=== PATIENT | female | born 1950 | race Caucasian/White ===

== ENCOUNTER 2020-03-01 13:07 | Outpatient (CLI) | payer MEDICARE, SELFPAY ==
--- NOTE | 2020-03-01 13:10 | ECG_ITS ---
Measurements Intervals [place] Rate: 72 P: 29 [place]: 172 QRS: 7 QRSD: 91 T: 26 QT: 379 QTc: 416 Interpretive Statements SINUS RHYTHM BASELINE ARTIFACT- I, III, AVL, AVF NORMAL ECG Electronically Signed On 03-01-2020 13:34:49 CDT by Pravin Weston D.O.
[2020-03-01 13:41] LABS: Blood Urea Nitrogen 31 mg/dL (7-17); Calcium 9.9 mg/dL (8.4-10.2); Carbon Dioxide 27 mmol/L (22-30); Chloride 102 mmol/L (98-107); Estimated Glomerular Filt Rate 41; Glucose 106 mg/dL (65-105); Potassium 4.5 mmol/L (3.4-5.0); Sodium 138 mmol/L (137-145)
== END 2020-03-01 13:08 | disposition home or self-care (01) ==
PROVIDERS: Anesthesiology; PCP Internal Medicine; Visit Provider Plastic Surgery
DX: I10 Essential (primary) hypertension (principal)
CPT/HCPCS: 36415; 80048; 93005

== ENCOUNTER 2020-03-04 00:17 | Outpatient (CLI) | payer MEDICARE, SELFPAY ==
[2020-03-04 17:13] LABS: SARS-CoV-2 RNA PCR Negative
== END 2020-03-04 00:18 | disposition home or self-care (01) ==
LOC: ANHCOVIDDT 00:17
PROVIDERS: PCP Internal Medicine; Visit Provider Plastic Surgery
DX: Z01.812 Encounter for preprocedural laboratory examination (principal); Z11.59 Encounter for screening for other viral diseases
CPT/HCPCS: 87635; C9803; U0003

== ENCOUNTER 2020-03-06 01:43 | Day surgery (SDC) | payer MEDICARE, SELFPAY ==
[2019-11-27 09:47] VITALS: BMI 34.9
[2020-02-29 09:25] VITALS: BMI 34.9
--- NOTE | 2020-03-05 10:30 | HP_ITS ---
DATE OF SERVICE: 03/06/2020 PREOPERATIVE DIAGNOSIS: Basal cell carcinoma by biopsy, upper nasal lobule. HISTORY: Dimple was seen in October for a small divot on her nose. This had started in June she believed. She noticed some swelling there. She has also noticed that the site never seems to heal. A punch biopsy of 3 mm diameter was taken in late October and the diagnosis of basal cell carcinoma was made and it is noted that the margins are involved with tumor. She is prepared for excision of this with frozen section control and reconstruction with possible direct closure, possible local tissue transfer or full-thickness skin graft. She is aware that there will be scarring, some distortion of the shape of her nose, possible numbness and she would like to proceed to do this under a MAC anesthetic. MEDICATIONS: Reveals that she takes 2 duloxetine 60 mg, lisinopril/hydrochlorothiazide 10/12.5, oxybutynin 10 mg extended release, biotin 10,000 mg, calcium 600 mg, vitamin D3 800 international units and rosuvastatin 40 mg. ALLERGIES: SHE LISTS NO TO MEDICATIONS, BUT PREFERS TO HAVE NO CAFFEINE. PAST SURGICAL HISTORY: Prior surgeries include tonsillectomy, D and C, wisdom teeth extraction, total hysterectomy, cholecystectomy, scoping of right knee and left knee, right total knee replacement in 2005, back surgery L4-L5 in 2006, rectal surgery and hernia repair in 2016, carpal tunnel release 2011. REVIEW OF SYSTEMS: Indicates she is a nonsmoker. She reports some gastric reflux. FAMILY HISTORY: Noncontributory. SOCIAL HISTORY: She lives in [place]. She is retired. She is to [place] and is a patient of Dr. Turcios. PHYSICAL EXAMINATION: GENERAL: She is an alert, cooperative, informative adult female, 5 feet 5 in stature, 210 pounds in weight. HEENT: Remarkable for the above biopsy site of the top of the lobule near the midline. There is no palpable adenopathy. CHEST: Clear to auscultation. HEART: Regular rate and rhythm by palpation. ABDOMEN: Soft, nontender. EXTREMITIES: Normal. ASSESSMENT: Basal cell carcinoma of the upper nasal lobe. PLAN: Excision with frozen section and reconstruction as indicated with possible local tissue transfer or full-thickness skin graft under MAC anesthetic. D I MT: Nohemi
[2020-03-06] VITALS (8 sets, daily range): BP systolic 110–136; BP diastolic 50–75; PULSE 57–93; RESP 10–20; TEMP 36.5–36.6; O2SAT 98–100
[2020-03-06] MEDS: LACTATED RINGERS 1,000 ML 30 ML IV CONT (06:35)
--- NOTE | 2020-03-06 06:44 | WPDANESEPPF ---
Anes - Initial Pre Proc Eval Procedure: Operation Date: 03/06/20 07:30 Proposed Procedures p Excision Basal Cell Carcinoma Upper Nasal Lobe with Frozen Section, Possible Local Tissue Transfer - Joshua Marsh MD Date/Time: 03/06/20 06:44 Surgeon: Joshua Marsh MD Pre Op Diagnosis: Basal Cell Carcinoma Patient Data Age: 69 Gender: F Height: 1.65 m Weight: 95 kg Allergies Allergy/AdvReac Type Severity Reaction Status Date / Time caffeine Allergy Unknown TRIGGERS Verified 03/06/20 06:23 MIGRAINES rosuvastatin Allergy Unknown Muscle Verified 03/06/20 06:23 Spasms AND CONFUSION Home Medications Medication Instructions Recorded Confirmed Type calcium carbonate-vitamin D3 1 cap PO DAILY 11/27/19 02/29/20 History [Calcium 600 with Vitamin D3] duloxetine 60 mg PO DAILY 11/27/19 02/29/20 History lisinopril-hydrochlorothiazide 1 tablet PO DAILY 11/27/19 02/29/20 History atorvastatin 40 mg PO QAM 02/29/20 02/29/20 History ECG: Date of Service: 03/01/20 Procedure(s): CA 12 lead EKG Accession Number(s): [id number] cc: ~ Measurements Intervals [place] Rate: 72 P: 29 [place]: 172 QRS: 7 QRSD: 91 T: 26 QT: 379 QTc: 416 Interpretive Statements SINUS RHYTHM BASELINE ARTIFACT- I, III, AVL, AVF NORMAL ECG Electronically Signed On 03-01-2020 13:34:49 CDT by Pravin Weston D.O. Dictated By: Pravin Westno DO 03/01/20 1341 Patient hx anesthesia problems: none Family hx anesthesia problems: none [facility] Past Medical History Medical History (Updated 03/06/20 @ 06:48 by Sammy Pimentel MD) Anxiety Arthritis Cancer BCCA NOSE Depression HTN (hypertension) Hypercholesterolemia Obesity Social History Social History Smoking status: Never smoker Alcohol intake: current Anes - Eval Final PreProcedure Day of Procedure 03/06/20 06:44 Patient weight: obese Heart: regular rate and rhythm Lungs: clear to auscultation and normal air movement Airway: Mallampati scale class II Neurological: alert and oriented Last oral intake: >/= 8 hours ASA classification: III Emergent: no Anesthetic plan: proceed Anesthesia type and monitoring: general GIVS and LMA Informed Consent: The patient's anesthetic plan and its attendant risks and benefits were discussed with the patient/family/POA. Questions were solicited and answers provided to the satisfaction of the patient/family/POA.
--- NOTE | 2020-03-06 07:13 | WPDHPUPDATE1 ---
History and Physical Update Update Date/Time: 03/06/20 07:13 History and Physical has been reviewed, including an updated exam of the patient. There are NO changes in the patient's condition. Risks, benefits, and alternatives have been discussed and questions answered. Patient agrees to proceed with procedure.
--- NOTE | 2020-03-06 07:26 | PM.OP ---
Procedure Note - Brief Procedure Note - Brief Date of procedure: 03/06/20 Pre-op diagnosis: Basal Cell Carcinoma Basal cell carcinoma of upper nasal lobule Post-op diagnosis: same Procedure performed: 1 cm excision of BCC of upper nasal lobule with FS and LTT 4.0 sq cm. Surgeon: Joshua Marsh MD Estimated blood loss (mL): 3 Drains: No Packing: No Pathology: yes Complications: No immediate complications Condition: stable Disposition: same day
[2020-03-06] MEDS: ceFAZolin SODIUM 1 GM VIAL 2 GM IV PUSH (07:51)
[2020-03-06] MEDS: LIDO 1%/EPINEPHRINE 1:100,000 20 ML VIAL INFILTRATE (07:56)
[2020-03-06] MEDS: BACITRACIN OINTMENT 15 GM TUBE 1 APPLIC TOPICAL (07:57)
--- NOTE | 2020-03-06 10:10 | SUR.PREOP ---
0730 FAMILY UPDATE PROVIDED
--- NOTE | 2020-03-06 12:08 | P.OP_ITS ---
Procedure Note - Detailed Date of procedure: 03/06/20 Pre-op diagnosis: Basal Cell Carcinoma Basal cell carcinoma of the upper nasal lobule. Post-op diagnosis: same Procedure performed: 1 cm excision of basal cell carcinoma of the upper nasal lobule with frozen section and local tissue transfer reconstruction 4 sq cm Description of procedure: The previously biopsied site on the upper lobule of the patient's nose was marked while she waited in the holding area. She was taken to the operating room and placed supine on the operating table. A time- out was held and confirmed. She was given general anesthesia with an LMA. The face and right neck were prepped and draped in usual fashion. The nasal lobule was carefully examined and the apparent periphery of the mass was marked with a dotted line. This area was infiltrated with 1% lidocaine with epinephrine. A small raised bump to 1 side was incised with a scalpel intending to add that to our biopsy. However fluid drained from just under that and we did not send a biopsy; it seemed to be a cyst. A single suture was placed there . At that 0.2 g of Ancef were administered IV. The full-thickness skin ellipse was incised and carefully taken off the muscle and fatty layers keeping our specimen fairly thin. The most superior aspect was marked with a suture and this tissue was sent for frozen section. The pathologist confirmed the diagnosis of basal cell carcinoma and noted that margins were free. The diameter of this defect was 1.1 cm. A bilobed flap was designed and further infiltrated. The 2 flaps were carefully elevated and rotated. Wound margins were undermined in all areas 3-5 mm. No significant distortion of the nasal vestibule resulted from the rotation of these flaps. Insetting and closure was done with buried 5 0 Vicryl and interrupted 6 0 nylon sutures. The wound was dressed with bacitracin ointment. The patient was transported to the recovery area. She will be discharged home with a prescription for tramadol 8. And cephalexin 500 mg t.i.d. 12. She will have instructions in wound care and follow-up Surgeon: Joshua Marsh MD
== END 2020-03-06 10:52 | disposition home or self-care (01) ==
PROVIDERS: PCP Internal Medicine; Visit Provider Plastic Surgery
PROC: (CPT 14060; principal; 2020-03-06 07:30)
DX: C44.311 Basal cell carcinoma of skin of nose (principal); I10 Essential (primary) hypertension; E78.00 Pure hypercholesterolemia, unspecified; F41.8 Other specified anxiety disorders; E66.9 Obesity, unspecified; Z68.34 Body mass index [BMI] 34.0-34.9, adult
CPT/HCPCS: 14060; 88305; 88331; A9270; J0690; J1100; J2405; J2704; J3010; J7120

== ENCOUNTER → 2020-08-15 16:00 | Outpatient (CLI) | payer MEDICARE, SELFPAY ==
--- NOTE | ~2020-08-15 | MM_ITS ---
EXAMINATION: MM screening norris BI w li HISTORY: Screening mammogram TECHNIQUE: Craniocaudal and mediolateral oblique 3-D tomosynthesis images were obtained and synthetic 2-D images were generated. CAD analysis was submitted and interpreted. COMPARISON: 1020 , 06/22/2018, 05/02/2017 bilateral digital screening mammogram examinations BREAST PARENCHYMAL COMPOSITION: There are scattered areas of fibroglandular density. FINDINGS: Stable bilateral small intramammary lymph nodes. There is no evidence of suspicious mass, calcification, or architectural distortion to suggest malignancy in either breast. There has been no suspicious interval change. IMPRESSION: 1. No mammographic evidence of malignancy. 2. Recommend routine screening mammography in one year. BI-RADS Category 2: Benign finding(s). Reviewed, dictated and finalized at location A. [employer]PERATOR
== END ==
PROVIDERS: PCP Internal Medicine; Visit Provider Internal Medicine
DX: Z12.31 Encounter for screening mammogram for malignant neoplasm of breast (principal)
CPT/HCPCS: 77063; 77067

== ENCOUNTER 2020-12-04 15:57 | Inpatient (IN) | payer MEDICARE, SELFPAY ==
[2020-12-04] VITALS (10 sets, daily range): BP systolic 82–113; BP diastolic 41–76; PULSE 56–105; RESP 16–25; TEMP 36.6–36.9; O2SAT 95–100; BMI 33.5
--- NOTE | ~2020-12-04 | CT_ITS ---
EXAMINATION: CT abdomen pelvis w con EXAM DATE: 12/04/2020 17:04 INDICATION: Right-sided abdominal pain for 3 days. Diarrhea. TECHNIQUE: Spiral CT of the abdomen and pelvis was performed following intravenous injection of 100 m L Omnipaque 350. Axial, coronal and sagittal images were reviewed. The dose-length product (DLP) fo r this examination was 962.85 mGy-cm. The exposure was tailored according to patient size (auto mA e xposure control), and iterative reconstruction (ASIR) was used as additional dose reduction technique . Comparison is made to prior examination from 03/09/2017. FINDINGS: The liver, spleen, adrenal glands and pancreas are unremarkable. There are cholecystectomy clips. Portal and splenic veins are patent. Kidneys enhance symmetrically. There is no hydronephr osis. The uterus is not identified and has likely been surgically resected. The bladder is unremar kable. There is no retroperitoneal or pelvic lymphadenopathy. There is mild scattered arterioscler otic disease. There is ascending and transverse colonic edema, appearance consistent with colitis. No pneumatosis o r evidence of vascular occlusion, indicates more likely infectious etiology than ischemic but check l actate. The appendix is normal. There is extensive descending and sigmoid colonic diverticulosis. There is n o adjacent inflammatory change to suggest diverticulitis. There is small to moderate-sized gastroesop hageal hiatal hernia. There is expected amount of colonic stool. No free intraperitoneal gas. Th e heart is normal in size. There are no pericardial or pleural effusions. The lung bases are unrema rkable. There are no osteoblastic or osteolytic lesions identified. Posterior fusion L4-5. IMPRESSION: 1. Ascending and transverse colonic colitis, probably infectious but check lactate. 2. Extensive colonic diverticulosis. Reviewed, dictated and finalized at location A. IMPRESSION: 1. Ascending and transverse colonic colitis, probably infectious but check lac mcqueen. 2. Extensive colonic diverticulosis.
--- NOTE | 2020-12-04 16:16 | ECG_ITS ---
Measurements Intervals [place] Rate: 87 P: 46 [place]: 163 QRS: 24 QRSD: 102 T: 37 QT: 379 QTc: 458 Interpretive Statements SINUS RHYTHM BASELINE ARTIFACT- II, III NORMAL ECG Electronically Signed On 12-04-2020 18:43:05 CDT by Pravin Weston D.O.
--- NOTE | 2020-12-04 16:22 | ED.NAVMDI ---
HPI - Nausea/Vomiting/Diarrhea General Chief complaint: Nausea/Vomiting/Diarrhea Stated complaint: abd pain Time Seen by Provider: 12/04/20 16:10 History of Present Illness HPI Narrative: Left flank pain for the past 3 days. Radiates into the LLQ. Associated with nausea and loose foul smelling dark stools. Exacerbated by movement. Triage BP was low. No fever, SOB, cough, CP. Related Data Home Medications Medication Instructions Recorded Confirmed calcium carbonate-vitamin D3 1 cap PO DAILY 11/27/19 03/06/20 [Calcium 600 with Vitamin D3] duloxetine 60 mg PO DAILY 11/27/19 03/06/20 lisinopril-hydrochlorothiazide 1 tablet PO DAILY 11/27/19 03/06/20 atorvastatin 40 mg PO QAM 02/29/20 03/06/20 Allergies Allergy/AdvReac Type Severity Reaction Status Date / Time caffeine Allergy Unknown TRIGGERS Verified 12/04/20 16:15 MIGRAINES rosuvastatin Allergy Unknown Muscle Verified 12/04/20 16:15 Spasms AND CONFUSION Review of Systems Review of Systems: All systems reviewed & are unremarkable except as noted in HPI and below Constitutional: Constitutional: Denies fever(s) and Reports weakness Eyes: Eyes: Reports no additional eye complaints ENT: Reports system reviewed and no additional complaints, except as documented Cardiovascular: Cardiovascular: Reports no additional cardiovascular complaints Respiratory: Respiratory: Reports no additional respiratory complaints Gastrointestinal: Gastrointestinal: Reports abdominal pain, Reports diarrhea, Reports nausea and Denies vomiting Genitourinary: Genitourinary: Reports no additional female genitourinary complaints [facility] Past Medical History Medical History Anxiety Arthritis Cancer BCCA NOSE Depression HTN (hypertension) Hypercholesterolemia Obesity Social History Social History Smoking status: Never smoker Alcohol intake: current Exam Const: General: no acute distress, alert and ill appearing Orientation/consciousness: patient oriented x3 HENMT: Mouth: Yes dry mucous membranes Neck: Neck: normal visual inspection Resp: Effort & Inspection: normal respiratory effort Auscultation: clear to auscultation bilaterally Cardio: Rate: regular rate Rhythm: regular rhythm GI: Inspection: non-distended GI Palp: Yes Soft to palpation, Yes Tenderness to palpation present (GI) (Bilateral lower abdomen), No Guarding due to palpation present (GI) and No Rebound tenderness present Skin: General skin exam: normal color Neuro: General: patient oriented x3, moves all extremities and CN's II-XI intact bilaterally Speech: normal speech Gait exam (Neuro): Normal gait present Extrem: General: normal to inspection and no edema Course Vital Signs Vital signs: Vital Signs Temperature 36.8 C 12/04/20 16:07 Pulse Rate 86 12/04/20 16:07 Respiratory Rate 16 12/04/20 16:07 Blood Pressure 86/62 L 12/04/20 16:07 Pulse Oximetry 97 12/04/20 16:07 Temperature 36.8 C 12/04/20 16:07 Pulse Rate 68 12/04/20 17:47 Respiratory Rate 16 12/04/20 17:47 Blood Pressure 91/41 L 12/04/20 17:47 Pulse Oximetry 100 12/04/20 17:47 MDM - Nausea/Vomiting/Diarrhea MDM Narrative Medical decision making narrative: CT consistent with infectious colitis. Normal lactic acid. BP imrpoving with fluids Differential Diagnosis Differential diagnosis: Likely gastroenteritis, clostridium difficile infection, dehydration and other (colitis, diverticulitis) Medical Records Attestation: I reviewed the patient's medical records. Lab Data Attestation: I reviewed the patient's lab results. Result diagrams: 12/04/20 16:23 12/04/20 16:23 Labs: Lab Results 12/04/20 12/04/20 12/04/20 Range/Units 16:23 16:23 18:06 WBC 13.8 H (4.5-10.0) K/mm3 RBC 4.27 (4.2-5.4) M/mm3 Hgb 12.8 (12.0-15.0) g/dL Hct
[2020-12-04 16:31] LABS: Basophils Absolute Auto 0.1 K/mm3 (0.0-0.1); Basophils Percent Auto 0.4 % (0.2-1.2); Eosinophils Absolute Auto 0.1 K/mm3 (0-0.3); Eosinophils Percent Auto 0.9 % (0-4.4); Hematocrit 38.1 % (37.0-47.0); Hemoglobin 12.8 g/dL (12.0-15.0); Immature Granulocyte Absolute 0.05 K/mm3 (0.00-0.031); Immature Granulocyte Percent A 0.4 % (0-0.5); Lymphocytes Absolute Auto 1.27 K/mm3 (0.9-3.2); Lymphocytes Percent Auto 9.2 % (18.3-44.2); Mean Corpuscular HGB Conc 33.6 g/dl (32-36); Mean Corpuscular Volume 89.2 fl (80-100); Mean Platelet Volume 10.3 fl (7.4-10.4); Monocytes Absolute Auto 0.8 K/mm3 (0.1-0.6); Monocytes Percent Auto 5.7 % (2.6-8.5); Neutrophils Absolute Auto 11.5 K/mm3 (1.3-6.7); Neutrophils Percent Auto 83.4 % (45.5-73.1); Platelet Count Result 243 k/mm3 (150-375); Red Blood Count 4.27 M/mm3 (4.2-5.4); Red Cell Distribution Width 12.7 % (11.5-14.5); White Blood Count 13.8 K/mm3 (4.5-10.0)
[2020-12-04 16:43] LABS: Alanine Aminotransferase 21 U/L (4-35); Albumin Level 4.1 g/dL (3.5-5.1); Alkaline Phosphatase 76 U/L (38-126); Anion Gap 11 mmol/L (8-16); Aspartate Amino Transferase 30 U/L (14-36); Bilirubin,Total 0.8 mg/dL (0.2-1.3); Blood Urea Nitrogen 19 mg/dL (7-17); Calcium 9.1 mg/dL (8.4-10.2); Carbon Dioxide 25 mmol/L (22-30); Chloride 100 mmol/L (98-107); Estimated CRCL calculation 43 ml/min; Estimated Glomerular Filt Rate 44; Glucose 137 mg/dL (65-105); Lipase 55 U/L (23-300); Potassium 3.4 mmol/L (3.4-5.0); Sodium 136 mmol/L (137-145)
--- NOTE | 2020-12-04 16:55 | PC.NURSE ---
Pt to CT scan via cart.
[2020-12-04] MEDS: SODIUM CHLORIDE 0.9% IV 1,000 ML 999 ML IV CONT ×2 (17:05→18:40)
[2020-12-04 18:17] LABS: Add Urine Microscopic? YES; Appearance Urine Cloudy (Clear); Bilirubin Urine Negative (Negative); Blood Urine Negative (Negative); Color Urine Yellow (Yellow); Glucose Urine UA Negative (Negative); Ketones Urine Negative (Negative); Leukocyte Esterase Ur 1+ LEU/UL (Negative); Mucus Urine Rare /lpf; Nitrate Urine Negative (Negative); Protein Urine Negative (Negative); RBC Urine 0-2 /hpf (0-2); Squamous Epithelial Cell Urine Many /hpf (Few); Urobilinogen Urine Negative mg/dL (<2.0); WBC Urine 0-3 /hpf
[2020-12-04 18:18] LABS: Specific Grav Ur 1.051 (1.001-1.035)
--- NOTE | 2020-12-04 19:58 | ADMGEN ---
This patient, Dimple Mares, was admitted to 2 Medical Room 260-. Patient/family oriented to hospital policies and general routines including ID bracelet, bed and alarms, visiting hours, pain management, procedures, bathroom and other care routines, personal items, smoking policy, room service/diet, and visiting hours. Information on how to activate the Rapid Response Team has been discussed. Patient/Family are encouraged to report perceived risks to care and to ask questions if they do not understand what they are told or what they should do.
[2020-12-04] MEDS: LACTATED RINGERS 1,000 ML 125 ML IV CONT (20:30)
--- NOTE | 2020-12-04 20:44 | PM.IMHP ---
H&P: HPI History of Present Illness Date/Time: 12/04/20 20:44 Chief Complaint: Lower abd pain since Wednesday Narrative: This is a pleasant 70-year-old diabetic female with known history of chronic hypertension, hyperlipidemia, and gout who presented to the hospital with a complaint of lower abdominal pain since this past Wednesday. The patient's discomfort started out initially as right flank pain and then became lower abdominal pain. She tried to eat some food on Wednesday but developed bloody diarrhea and worsening abdominal pain. She denies any significant nausea or vomiting. She also denies any fever, chills, chest pain, shortness of breath, palpitations, dysuria, or hematuria. The patient has never had any episode of colitis before although she does have family history of her brother having early colon cancer in his 40s and her mother had diverticulosis. The patient's last colonoscopy was less than 5 years ago and was normal according to her. CT abdomen pelvis revealed ascending and transverse colonic colitis. The patient was treated with IV fluids and IV antibiotics. On my encounter with her she currently has no significant pain and is doing well. She has no other complaints at this time. Review of Systems Review of Systems: All systems reviewed & are unremarkable except as noted in HPI and below PMFSH Past Medical History Medical History (Updated 12/04/20 @ 20:52 by Arun Palomino MD) Anxiety Arthritis Cancer BCCA NOSE Chronic renal failure, stage 3 (moderate) Depression Diabetes mellitus HTN (hypertension) Hypercholesterolemia Obesity Surgical History Surgical History (Updated 12/04/20 @ 20:49 by Arun Palomino MD) History of cholecystectomy History of total hysterectomy Family History Family History Sibling Colon cancer Father Colon cancer Diabetes mellitus Hyperlipemia Mother Lung cancer Diverticulitis Diabetes mellitus Hyperlipemia Social History Social History Smoking status: Never smoker Alcohol intake: never Substance use: never Spiritual care concerns: No Meds Home Medications and Allergies Home Medications Medication Instructions Recorded Confirmed Type duloxetine 60 mg PO DAILY 11/27/19 12/04/20 History lisinopril-hydrochlorothiazide 1 tablet PO DAILY 11/27/19 12/04/20 History atorvastatin 40 mg PO QAM 02/29/20 12/04/20 History allopurinol 100 mg PO DAILY 12/04/20 12/04/20 History calcitriol 0.25 mcg PO EVERY OTHER DAY 12/04/20 12/04/20 History ergocalciferol (vitamin D2) 1,250 mcg PO WEEKLY 12/04/20 12/04/20 History metformin 500 mg PO DAILY 12/04/20 12/04/20 History oxybutynin chloride 5 mg PO HS 12/04/20 12/04/20 History Allergies Allergy/AdvReac Type Severity Reaction Status Date / Time caffeine Allergy Unknown TRIGGERS Verified 12/04/20 20:43 MIGRAINES rosuvastatin Allergy Unknown Muscle Verified 12/04/20 20:43 Spasms AND CONFUSION Vital Signs Vital Signs - 24 hr 12/04/20 16:07 12/04/20 16:18 12/04/20 16:50 Temperature 36.8 C Pulse Rate 86 90 86 Respiratory Rate 16 25 H Blood Pressure 86/62 L 113/58 L 89/63 L Pulse Oximetry 97 95 12/04/20 16:52 12/04/20 17:07 12/04/20 17:47 Temperature Pulse Rate 97 78 68 Respiratory Rate 18 16 Blood Pressure 82/61 L 91/49 L 91/41 L Pulse Oximetry 98 100 12/04/20 19:40 12/04/20 19:53 12/04/20 20:34 Temperature 36.6 C Pulse Rate 105 H 65 65 Respiratory Rate 18 16 Blood Pressure 99/76 L 101/51 L Pulse Oximetry 96 100 Exam Const: General: cooperative, alert and awake Nutritional Appearance: obese Orientation/consciousness: patient oriented x3 HENMT: Head: normal to inspection General nose exam: Normal external nose present Face and sinus: normal facial exam Mouth: Yes Normal oral and palatal mucosa present and Yes oropharynx normal Eyes: Pupils
[2020-12-05] VITALS (9 sets, daily range): BP systolic 111–118; BP diastolic 49–68; PULSE 54–63; RESP 16–20; TEMP 36.2–36.6; O2SAT 98–99
[2020-12-05 00:18] LABS: Glucose Point of Care 99 (65-105)
[2020-12-05] MEDS: LACTATED RINGERS 1,000 ML 125 ML IV CONT (05:02)
[2020-12-05 05:55] LABS: Basophils Percent Auto 0.6 % (0.2-1.2); Eosinophils Absolute Auto 0.2 K/mm3 (0-0.3); Eosinophils Percent Auto 2.9 % (0-4.4); Hematocrit 31.9 % (37.0-47.0); Hemoglobin 10.8 g/dL (12.0-15.0); Immature Granulocyte Absolute 0.01 K/mm3 (0.00-0.031); Immature Granulocyte Percent A 0.1 % (0-0.5); Lymphocytes Absolute Auto 1.52 K/mm3 (0.9-3.2); Lymphocytes Percent Auto 21.3 % (18.3-44.2); Mean Corpuscular HGB Conc 33.9 g/dl (32-36); Mean Corpuscular Hemoglobin 30.3 pg (26-34); Mean Corpuscular Volume 89.6 fl (80-100); Mean Platelet Volume 10.7 fl (7.4-10.4); Monocytes Absolute Auto 0.6 K/mm3 (0.1-0.6); Neutrophils Absolute Auto 4.8 K/mm3 (1.3-6.7); Neutrophils Percent Auto 67.1 % (45.5-73.1); Platelet Count Result 201 k/mm3 (150-375); Red Blood Count 3.56 M/mm3 (4.2-5.4); Red Cell Distribution Width 12.6 % (11.5-14.5); White Blood Count 7.1 K/mm3 (4.5-10.0)
[2020-12-05 06:06] LABS: Anion Gap 4 mmol/L (8-16); Blood Urea Nitrogen 15 mg/dL (7-17); Calcium 8.5 mg/dL (8.4-10.2); Carbon Dioxide 27 mmol/L (22-30); Chloride 106 mmol/L (98-107); Estimated CRCL calculation 52 ml/min; Estimated Glomerular Filt Rate 55; Glucose 97 mg/dL (65-105); Potassium 4.1 mmol/L (3.4-5.0); Sodium 137 mmol/L (137-145)
[2020-12-05 06:38] LABS: Glucose Point of Care 107 (65-105)
[2020-12-05 08:41] LABS: Hemoglobin A1C 5.6 % (<5.7)
[2020-12-05] MEDS: ENOXAPARIN 40 MG/0.4 ML SYRINGE SUB-Q (09:00)
--- NOTE | 2020-12-05 10:41 | PM.IMPN ---
Progress Note: A&P Assessment and Plan (1) Colitis: Code(s): K52.9 - Noninfective gastroenteritis and colitis, unspecified Status: Acute Assessment and Plan: Unclear etiology. Possibly infectious vs other unlikely etiologies such as ischemic vs IBD. Feeling somewhat better today. Patient willing to advance diet tonight. Used to follow Dr. Dickerson in the past; last colonoscpy was anywhere from [id number] but she is unsure exactly when Continue IV zosyn for now Will trial CLD tonight; NPO if not tolerating diet Pain control with IV narcotics; will need to wean as pain subsides Obtain stool studies Stool culture to be obtained BCx unfortunately not obtained prior to IV antibiotics admin, but will obtain for completeness sake Monitor for improvement She will need follow up with GI as outpatient; consider consultation if no improvement (2) Dehydration: Code(s): E86.0 - Dehydration Status: Acute Assessment and Plan: Decrease rate of IV fluids to 75 mL/hr monitor urine output and vital signs. (3) Leukocytosis: Qualifiers: Leukocytosis type: unspecified Qualified Code(s): D72.829 - Elevated white blood cell count, unspecified Code(s): D72.829 - Elevated white blood cell count, unspecified Status: Acute Assessment and Plan: Likely secondary to colitis. Resolved Monitor CBCD (4) Diabetes mellitus: Qualifiers: Diabetes mellitus type: type 2 Diabetes mellitus intermediate card tender insulin use: without group home use Diabetes mellitus complication status: without complication Qualified Code(s): E11.9 - Type 2 diabetes mellitus without complications Code(s): E11.9 - Type 2 diabetes mellitus without complications Status: Chronic Assessment and Plan: A1c 5.6 Accu-Cheks, sliding scale insulin coverage, hypoglycemia protocol. Diabetic diet when tolering diet Hold metformin (5) Chronic renal failure, stage 3 (moderate): Qualifiers: Chronic kidney disease stage 3 subtype: unspecified whether 3a or 3b Qualified Code(s): N18.30 - Chronic kidney disease, stage 3 unspecified Code(s): N18.30 - Chronic kidney disease, stage 3 unspecified Status: Chronic Assessment and Plan: Cr 1.00 today; improved from yesterday Monitor renal function, avoid nephrotoxic agents, renally dose medications. (6) HTN (hypertension): Qualifiers: Hypertension type: unspecified Qualified Code(s): I10 - Essential (primary) hypertension Code(s): I10 - Essential (primary) hypertension Status: Chronic Assessment and Plan: Patient's blood pressure has been soft since arrival but improved to 110s sys this mornning Monitor blood pressure. Hold home antihypertensives. Resume when appropriate. Subjective Date/time seen: 12/05/20 10:41 Interval history: Patient is a 70-year-old diabetic female with known history of chronic hypertension, hyperlipidemia, and gout who is seen in follow up for colitis with unclear etiology. Patient states she feels somewhat better today. Pain is less, mostly in lower abdomen, primarily right side. She has no n/v, f/c today. Her BM is loose, but not very many BMs since admission. No blood associated with BMs as far as she is aware. BMs are foul smelling and somewhat dark most recently. 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 Recenly had COVID vaccine a couple weeks ago as well. No other complaints or updated information. We discussed advancing diet this evening which she is agreeable to and understands to let nursing know if she has recurring symptoms. Denies cp/palpitations, sob/cough, dysuria, calf pain/swelling. Review of Systems Review of Systems:
[2020-12-05 11:41] LABS: Glucose Point of Care 94 (65-105)
[2020-12-05] MEDS: LACTATED RINGERS 1,000 ML 75 ML IV CONT (15:55)
[2020-12-05 17:53] LABS: Glucose Point of Care 75 (65-105)
[2020-12-06 00:15] LABS: Glucose Point of Care 85 (65-105)
[2020-12-06] MEDS: LACTATED RINGERS 1,000 ML 75 ML IV CONT (05:45)
[2020-12-06 05:49] LABS: Basophils Percent Auto 0.5 % (0.2-1.2); Eosinophils Absolute Auto 0.3 K/mm3 (0-0.3); Eosinophils Percent Auto 4.2 % (0-4.4); Hematocrit 31.4 % (37.0-47.0); Hemoglobin 10.5 g/dL (12.0-15.0); Immature Granulocyte Absolute 0.02 K/mm3 (0.00-0.031); Immature Granulocyte Percent A 0.3 % (0-0.5); Lymphocytes Absolute Auto 1.53 K/mm3 (0.9-3.2); Lymphocytes Percent Auto 25.4 % (18.3-44.2); Mean Corpuscular HGB Conc 33.4 g/dl (32-36); Mean Corpuscular Hemoglobin 29.4 pg (26-34); Mean Platelet Volume 9.8 fl (7.4-10.4); Monocytes Absolute Auto 0.5 K/mm3 (0.1-0.6); Monocytes Percent Auto 8.6 % (2.6-8.5); Neutrophils Absolute Auto 3.7 K/mm3 (1.3-6.7); Platelet Count Result 223 k/mm3 (150-375); Red Blood Count 3.57 M/mm3 (4.2-5.4); Red Cell Distribution Width 12.4 % (11.5-14.5)
[2020-12-06 05:51] LABS: Glucose Point of Care 87 (65-105)
[2020-12-06 06:00] VITALS: BP 111/47; PULSE 62; RESP 20; TEMP 36.5; O2SAT 98
[2020-12-06 06:06] LABS: Anion Gap 4 mmol/L (8-16); Blood Urea Nitrogen 8 mg/dL (7-17); Calcium 8.9 mg/dL (8.4-10.2); Carbon Dioxide 30 mmol/L (22-30); Chloride 107 mmol/L (98-107); Estimated CRCL calculation 52 ml/min; Estimated Glomerular Filt Rate 55; Glucose 98 mg/dL (65-105); Magnesium 1.9 mg/dL (1.6-2.3); Potassium 4.1 mmol/L (3.4-5.0); Sodium 141 mmol/L (137-145)
[2020-12-06 07:41] LABS: Iron 28 ug/dL (37-170)
[2020-12-06 07:51] LABS: Percent Iron Saturation 11 % (20-50)
[2020-12-06 08:30] VITALS: BP 123/58; PULSE 59; RESP 16; TEMP 36.2; O2SAT 98
[2020-12-06 08:50] LABS: Folic Acid 16.4 ng/mL (2.76->20)
[2020-12-06] MEDS: ENOXAPARIN 40 MG/0.4 ML SYRINGE SUB-Q (08:52)
[2020-12-06 11:46] VITALS: BP 133/58; PULSE 79; RESP 16; TEMP 36.5; O2SAT 100
[2020-12-06 12:16] LABS: Glucose Point of Care 132 (65-105)
--- NOTE | 2020-12-06 13:26 | PM.IMPN ---
Progress Note: A&P Assessment and Plan (1) Colitis: Code(s): K52.9 - Noninfective gastroenteritis and colitis, unspecified Status: Acute Assessment and Plan: Unclear etiology. Possibly infectious vs other unlikely etiologies such as ischemic vs IBD. Feeling better today, but slow progress. Patient willing to advance diet again tonight to FLD. She has followed Dr. Dickerson in the past; last colonoscopy was anywhere from [id number] but she is unsure exactly when. Stool studies pending. BCx negative to date x 2 (obtained after initiation of antibiotics) Continue IV zosyn for now Will advance FLD tonight Pain control with PO narcotics; will need to wean as pain subsides Monitor for improvement She will need follow up with GI as outpatient; consider consultation if no improvement (2) Dehydration: Code(s): E86.0 - Dehydration Status: Acute Assessment and Plan: D/c IV fluids today monitor urine output and vital signs. (3) Leukocytosis: Qualifiers: Leukocytosis type: unspecified Qualified Code(s): D72.829 - Elevated white blood cell count, unspecified Code(s): D72.829 - Elevated white blood cell count, unspecified Status: Resolved Assessment and Plan: Likely secondary to colitis. Resolved Monitor CBCD (4) Diabetes mellitus: Qualifiers: Diabetes mellitus type: type 2 Diabetes mellitus mcfp insulin use: without mcfp use Diabetes mellitus complication status: without complication Qualified Code(s): E11.9 - Type 2 diabetes mellitus without complications Code(s): E11.9 - Type 2 diabetes mellitus without complications Status: Chronic Assessment and Plan: A1c 5.6 d/c Accu-Cheks. Continue sliding scale insulin coverage, hypoglycemia protocol. Diabetic/low fiber diet when advanced Hold metformin (5) Chronic renal failure, stage 3 (moderate): Qualifiers: Chronic kidney disease stage 3 subtype: unspecified whether 3a or 3b Qualified Code(s): N18.30 - Chronic kidney disease, stage 3 unspecified Code(s): N18.30 - Chronic kidney disease, stage 3 unspecified Status: Chronic Assessment and Plan: Cr 1.00 today; improved from yesterday Monitor renal function, avoid nephrotoxic agents, renally dose medications. (6) HTN (hypertension): Qualifiers: Hypertension type: unspecified Qualified Code(s): I10 - Essential (primary) hypertension Code(s): I10 - Essential (primary) hypertension Status: Chronic Assessment and Plan: Patient's blood pressure soft on arrival but improved to 130s sys this morning Monitor blood pressure. Hold home antihypertensives. Resume when appropriate. Subjective Date/time seen: 12/06/20 13:26 Interval history: Patient is a 70-year-old diabetic female with known history of chronic hypertension, hyperlipidemia, and gout who is seen in follow up for colitis, likely infectious. Patient states she feels somewhat better today but was in a bit of pain last night. Pain is less today. She has no n/v, f/c today. Her BM is loose; 2 BMs since yesterday. No blood associated with BMs. No other complaints or updated information. We discussed advancing diet this evening which she is agreeable to and understands to let nursing know if she has recurring symptoms. Denies cp/palpitations, sob/cough, dysuria, calf pain/swelling. Review of Systems Review of Systems: All systems reviewed & are unremarkable except as noted in HPI and below Exam Narrative: Exam Narrative: General: Patient resting semi-recumbent in no acute distress. HEENT: Normocephalic, EOMI, oral mucosa moist. Cardiovascular: Rate and rhythm are regular. No notable mur
[2020-12-06 14:00] VITALS: BP 137/60; PULSE 61; RESP 16; TEMP 36.8; O2SAT 99
--- NOTE | 2020-12-06 15:05 | PC.NURSE ---
On 12/06/20, the student, [Edwin Choe ], provided care and completed [employer] documentation on this patient. I have reviewed the student's documentation and agree with the findings.
[2020-12-06 17:57] LABS: Glucose Point of Care 96 (65-105)
[2020-12-06 22:00] VITALS: BP 122/77; PULSE 62; RESP 21; TEMP 36.4; O2SAT 100
[2020-12-06 22:06] LABS: Glucose Point of Care 105 (65-105)
[2020-12-07 05:11] LABS: Hematocrit 30.9 % (37.0-47.0); Hemoglobin 10.6 g/dL (12.0-15.0); Mean Corpuscular HGB Conc 34.3 g/dl (32-36); Mean Corpuscular Hemoglobin 30.5 pg (26-34); Red Blood Count 3.47 M/mm3 (4.2-5.4); White Blood Count 5.7 K/mm3 (4.5-10.0)
[2020-12-07 05:12] LABS: Mean Platelet Volume 9.8 fl (7.4-10.4); Platelet Count Result 221 k/mm3 (150-375); Red Cell Distribution Width 12.5 % (11.5-14.5)
[2020-12-07 05:20] LABS: Anion Gap 2 mmol/L (8-16); Blood Urea Nitrogen 5 mg/dL (7-17); Calcium 8.4 mg/dL (8.4-10.2); Carbon Dioxide 31 mmol/L (22-30); Chloride 107 mmol/L (98-107); Estimated CRCL calculation 52 ml/min; Estimated Glomerular Filt Rate 55; Glucose 108 mg/dL (65-105); Magnesium 1.9 mg/dL (1.6-2.3); Potassium 3.7 mmol/L (3.4-5.0); Sodium 140 mmol/L (137-145)
[2020-12-07 06:00] VITALS: BP 115/49; PULSE 57; RESP 18; TEMP 36.9; O2SAT 97
[2020-12-07 08:05] LABS: Glucose Point of Care 88 (65-105)
[2020-12-07] MEDS: ENOXAPARIN 40 MG/0.4 ML SYRINGE SUB-Q (08:49)
[2020-12-07 12:33] LABS: Glucose Point of Care 106 (65-105)
[2020-12-07 14:00] VITALS: BP 133/62; PULSE 62; RESP 16; TEMP 36.2; O2SAT 99
--- NOTE | 2020-12-07 14:07 | PM.IMPN ---
Progress Note: A&P Assessment and Plan (1) Colitis: Code(s): K52.9 - Noninfective gastroenteritis and colitis, unspecified Status: Acute Assessment and Plan: Unclear etiology. Infectious vs IBD vs other such as ischemic, although less likely. Feeling better today, but slow progress. Patient willing to advance diet again today to Low fiber. She has followed Dr. Dickerson in the past; last colonoscopy was anywhere from [id number] but she is unsure exactly when. Stool studies pending. WBC smear negative. BCx negative to date x 2 (obtained after initiation of antibiotics) Will transition to PO antibiotics today given clinical improvement Will advance low fiber diet today Pain control with PO tylenol and [place] prn Monitor for improvement She will need follow up with GI as outpatient; consider consultation if no improvement If continued improvement overnight and tolerating diet, then will likely discharge tomorrow (2) Dehydration: Code(s): E86.0 - Dehydration Status: Acute Assessment and Plan: PO intake monitor urine output and vital signs. (3) Leukocytosis: Qualifiers: Leukocytosis type: unspecified Qualified Code(s): D72.829 - Elevated white blood cell count, unspecified Code(s): D72.829 - Elevated white blood cell count, unspecified Status: Resolved Assessment and Plan: Likely secondary to colitis. Resolved Monitor CBCD (4) Diabetes mellitus: Qualifiers: Diabetes mellitus type: type 2 Diabetes mellitus chcf insulin use: without chcf use Diabetes mellitus complication status: without complication Qualified Code(s): E11.9 - Type 2 diabetes mellitus without complications Code(s): E11.9 - Type 2 diabetes mellitus without complications Status: Chronic Assessment and Plan: A1c 5.6 d/c Accu-Cheks. Continue sliding scale insulin coverage, hypoglycemia protocol. low fiber diet when advanced Hold metformin (5) Chronic renal failure, stage 3 (moderate): Qualifiers: Chronic kidney disease stage 3 subtype: unspecified whether 3a or 3b Qualified Code(s): N18.30 - Chronic kidney disease, stage 3 unspecified Code(s): N18.30 - Chronic kidney disease, stage 3 unspecified Status: Chronic Assessment and Plan: Cr 1.00 today; stable Monitor renal function, avoid nephrotoxic agents, renally dose medications. (6) HTN (hypertension): Qualifiers: Hypertension type: unspecified Qualified Code(s): I10 - Essential (primary) hypertension Code(s): I10 - Essential (primary) hypertension Status: Chronic Assessment and Plan: Patient's blood pressure soft on arrival but 110s today Monitor blood pressure. Hold home antihypertensives. Resume when appropriate. Subjective Date/time seen: 12/07/20 14:07 Interval history: Patient is a 70-year-old diabetic female with known history of chronic hypertension, hyperlipidemia, and gout who is seen in follow up for colitis, likely infectious. Patient states she feels better today. No pain currently. Has had 2 loose stools but no blood. She has no n/v, f/c today. No other complaints or updated information. We discussed advancing diet today which she is agreeable to and understands to let nursing know if she has recurring symptoms. Denies cp/palpitations, sob/cough, dysuria, calf pain/swelling. Review of Systems Review of Systems: All systems reviewed & are unremarkable except as noted in HPI and below Exam Narrative: Exam Narrative: General: Patient resting semi-recumbent in no acute distress. HEENT: Normocephalic, EOMI, oral mucosa moist. Cardiovascular: Rate and rhythm are regular. No notable murmur, rub,
[2020-12-07] MEDS: metroNIDAZOLE 250 MG TABLET 500 MG PO ×2 (14:25→20:58)
[2020-12-07] MEDS: SACCHAROMYCES BOULARDII 250 MG CAPSULE PO (16:53)
[2020-12-07 17:20] LABS: Glucose Point of Care 84 (65-105)
[2020-12-07 21:12] LABS: Glucose Point of Care 161 (65-105)
[2020-12-07 22:00] VITALS: BP 135/62; PULSE 68; RESP 20; TEMP 36.3; O2SAT 98
[2020-12-08 05:37] LABS: Hematocrit 30.8 % (37.0-47.0); Hemoglobin 10.3 g/dL (12.0-15.0); Mean Corpuscular HGB Conc 33.4 g/dl (32-36); Mean Corpuscular Hemoglobin 29.9 pg (26-34); Mean Corpuscular Volume 89.3 fl (80-100); Mean Platelet Volume 10.5 fl (7.4-10.4); Platelet Count Result 233 k/mm3 (150-375); Red Blood Count 3.45 M/mm3 (4.2-5.4); Red Cell Distribution Width 12.7 % (11.5-14.5); White Blood Count 5.9 K/mm3 (4.5-10.0)
[2020-12-08 05:48] LABS: Anion Gap 3 mmol/L (8-16); Blood Urea Nitrogen 6 mg/dL (7-17); Calcium 8.1 mg/dL (8.4-10.2); Carbon Dioxide 28 mmol/L (22-30); Chloride 108 mmol/L (98-107); Estimated CRCL calculation 57 ml/min; Estimated Glomerular Filt Rate > 60; Glucose 102 mg/dL (65-105); Magnesium 1.8 mg/dL (1.6-2.3); Potassium 3.5 mmol/L (3.4-5.0); Sodium 139 mmol/L (137-145)
[2020-12-08] MEDS: metroNIDAZOLE 250 MG TABLET 500 MG PO (05:59)
[2020-12-08 06:00] VITALS: BP 108/46; PULSE 63; RESP 20; TEMP 36.5; O2SAT 98
[2020-12-08] MEDS: SACCHAROMYCES BOULARDII 250 MG CAPSULE PO (07:59)
[2020-12-08] MEDS: allopurinoL 100 MG TABLET PO (07:59)
[2020-12-08] MEDS: DULoxetine HCL 60 MG CAPSULE.DR PO (08:00)
[2020-12-08] MEDS: ENOXAPARIN 40 MG/0.4 ML SYRINGE SUB-Q (08:00)
[2020-12-08] MEDS: ATORVASTATIN 40 MG TABLET PO (08:00)
--- NOTE | 2020-12-08 09:02 | PM.DS ---
DS: Admitting Diagnosis Admitting Diagnosis Admitting Diagnosis: Colitis DS: Discharge Diagnosis Discharge Diagnosis (1) Colitis: Code(s): K52.9 - Noninfective gastroenteritis and colitis, unspecified Status: Acute Assessment and Plan: Unclear etiology. Infectious vs IBD vs other such as ischemic, although less likely. Feeling better today, but slow progress. Patient willing to advance diet again today to Low fiber. She has followed Dr. Dickerson in the past; last colonoscopy was anywhere from [id number] but she is unsure exactly when. Stool studies pending. WBC smear negative. BCx negative to date x 2 (obtained after initiation of antibiotics) Continue Levaquin 750 mg PO daily and Flagyl 500 mg PO Q8hr through 12/13 to complete 10 days total of antibiotics Low fiber diet for ~1 week; transition to High fiber/diabetic diet thereafter given diverticulosis Pain control with PO tylenol prn F/u with PCP She will need follow up with GI as outpatient; will provide medical record consultant GI specialist information (Dr. Schafer) (2) Dehydration: Code(s): E86.0 - Dehydration Status: Resolved Assessment and Plan: Appears Euvolemic today (3) Leukocytosis: Qualifiers: Leukocytosis type: unspecified Qualified Code(s): D72.829 - Elevated white blood cell count, unspecified Code(s): D72.829 - Elevated white blood cell count, unspecified Status: Resolved Assessment and Plan: Likely secondary to colitis. Resolved f/u with PCP (4) Diabetes mellitus: Qualifiers: Diabetes mellitus complication status: without complication Diabetes mellitus chcf insulin use: without chcf use Diabetes mellitus type: type 2 Qualified Code(s): E11.9 - Type 2 diabetes mellitus without complications Code(s): E11.9 - Type 2 diabetes mellitus without complications Status: Chronic Assessment and Plan: A1c 5.6 d/c'd Accu-Cheks. Continued sliding scale insulin coverage, hypoglycemia protocol. low fiber diet Resume metformin at discharge (5) Chronic renal failure, stage 3 (moderate): Qualifiers: Chronic kidney disease stage 3 subtype: unspecified whether 3a or 3b Qualified Code(s): N18.30 - Chronic kidney disease, stage 3 unspecified Code(s): N18.30 - Chronic kidney disease, stage 3 unspecified Status: Chronic Assessment and Plan: Cr 0.90 today; stable F/u with PCP (6) HTN (hypertension): Qualifiers: Hypertension type: unspecified Qualified Code(s): I10 - Essential (primary) hypertension Code(s): I10 - Essential (primary) hypertension Status: Chronic Assessment and Plan: Patient's blood pressure soft on arrival but 130s today Resume home antihypertensives DS: Summary Hospital Course Reason for hospitalization: Colitis Hospital Course: Date of arrival: 12/04/20 Date of discharge: 12/08/20 Patient is a 70-year-old diabetic female with known history of chronic hypertension, hyperlipidemia, and gout who presented to the hospital on 12/04 with a complaint of lower abdominal pain since 12/01. While in the ED, she was found to have a leukocytosis of 13.8k. CT abd/pelvis revealed ascending and transverse colonic colitis. Patient was treated with IV fluids and IV zosyn. Patient admitted to the hospitalist service under this setting for further management/treatment. Please see H&P for further details. After admission, patient continued on IV fluids and Zosyn. She was made NPO. As her symptoms improved, her diet was advanced. IV fluids were eventually discontinued. She was transitioned to Low fiber diet on 12/07 which she tolerated well. She was transitioned to PO Levaquin and Flagyl at that tad
--- NOTE | 2020-12-12 13:29 | PC.NURSE ---
Blood cx are negative
== END 2020-12-08 11:06 | disposition home or self-care (01) | DRG 392 ==
LOC: ANHED 16:23 → ANH2MED 19:20
PROVIDERS: Family Medicine; Admitting Provider Family Medicine; Emergency Provider Emergency Medicine; PCP Internal Medicine; Visit Provider Physician Assistant
DX: K52.3 Indeterminate colitis (principal); A09 Infectious gastroenteritis and colitis, unspecified; E86.0 Dehydration; D72.829 Elevated white blood cell count, unspecified; I12.9 Hypertensive chronic kidney disease with stage 1 through stage 4 chronic kidney disease, or unspecified chronic kidney disease; E11.22 Type 2 diabetes mellitus with diabetic chronic kidney disease; N18.30 Chronic kidney disease, stage 3 unspecified; E78.5 Hyperlipidemia, unspecified; M19.90 Unspecified osteoarthritis, unspecified site; F41.8 Other specified anxiety disorders; E66.9 Obesity, unspecified; Z68.33 Body mass index [BMI] 33.0-33.9, adult; Z85.828 Personal history of other malignant neoplasm of skin; Z90.49 Acquired absence of other specified parts of digestive tract; Z90.710 Acquired absence of both cervix and uterus; M10.9 Gout, unspecified; D64.9 Anemia, unspecified
CPT/HCPCS: 36415; 74177; 80048; 80053; 81001; 82607; 82728; 82746; 82948; 83036; 83540; 83550; 83605; 83690; 83735; 85025; 85027; 87040; 87045; 87046; 87427; 89055; 93005; 96365; 99285; A9270; J1650; J2543; J7030; J7120; Q9967

== ENCOUNTER → 2021-02-11 02:46 | Outpatient (CLI) | payer MEDICARE, SELFPAY ==
[2021-02-11 18:14] LABS: SARS-CoV-2 RNA PCR Negative
== END ==
PROVIDERS: PCP Internal Medicine; Visit Provider Internal Medicine Gastroenterology
DX: Z01.812 Encounter for preprocedural laboratory examination (principal); Z20.822 Contact with and (suspected) exposure to COVID-19
CPT/HCPCS: C9803; U0003; U0005

== ENCOUNTER 2021-02-14 01:35 | Day surgery (SDC) | payer MEDICARE, SELFPAY ==
[2021-01-30 13:55] VITALS: BMI 34.1
[2021-02-14 06:48] VITALS: BP 117/93; PULSE 72; RESP 18; TEMP 36.3; O2SAT 100
[2021-02-14] MEDS: LACTATED RINGERS 1,000 ML 150 ML IV CONT (06:53)
[2021-02-14 06:56] LABS: Glucose Point of Care 109 mg/dl (65-105)
--- NOTE | 2021-02-14 07:57 | WPDANESEPPF ---
Anes - Initial Pre Proc Eval Procedure: Operation Date: 02/14/21 08:00 Proposed Procedures p Colonoscopy - Avinash Ivy MD Date/Time: 02/14/21 07:57 Surgeon: Avinash Ivy MD Pre Op Diagnosis: colitis Patient Data Age: 70 Gender: F Height: 5 ft 5 in Weight: 94.6 kg Last Vital Signs Temp 97.4 F L 02/14/21 06:48 Pulse 72 02/14/21 06:48 Resp 18 02/14/21 06:48 BP 117/93 H 02/14/21 06:48 Pulse Ox 100 02/14/21 06:48 Allergies Allergy/AdvReac Type Severity Reaction Status Date / Time caffeine Allergy Unknown TRIGGERS Verified 02/14/21 06:47 MIGRAINES rosuvastatin Allergy Unknown Muscle Verified 02/14/21 06:47 Spasms AND CONFUSION Home Medications Medication Instructions Recorded Confirmed Type duloxetine 60 mg PO DAILY 11/27/19 02/14/21 History atorvastatin 40 mg PO QAM 02/29/20 02/14/21 History allopurinol 100 mg PO DAILY 12/04/20 02/14/21 History calcitriol 0.25 mcg PO EVERY OTHER DAY 12/04/20 02/14/21 History ergocalciferol (vitamin D2) 1,250 mcg PO WEEKLY 12/04/20 02/14/21 History metformin 500 mg PO DAILY 12/04/20 02/14/21 History oxybutynin chloride 5 mg PO HS 12/04/20 02/14/21 History acetaminophen [Mapap 650 mg PO Q6H PRN #0 tablet 12/08/20 02/14/21 Rx (acetaminophen)] omeprazole 40 mg capsule,delayed 40 mg PO DAILY 01/09/21 02/14/21 History release lisinopril 10 mg PO DAILY 01/30/21 02/14/21 History Laboratory Tests 02/14/21 06:55 POC Capillary Glucose 109 mg/dl H mg/dl (65-105) Patient hx anesthesia problems: none Family hx anesthesia problems: none PMFSH Past Medical History Medical History (Updated 01/09/21 @ 10:26 by Avinash Ivy MD) Anxiety Arthritis BMI 34.0-34.9,adult Cancer BCCA NOSE Chronic renal failure, stage 3 (moderate) Depression Diabetes mellitus Family history of colon cancer HTN (hypertension) Hypercholesterolemia Obesity Surgical History Surgical History History of cholecystectomy History of total hysterectomy Family History Family History Sibling Colon cancer Father Colon cancer Diabetes mellitus Hyperlipemia Mother Lung cancer Diverticulitis Diabetes mellitus Hyperlipemia Social History Social History Smoking status: Never smoker Alcohol intake: never Substance use: never Living arrangements: with family Gender identity (if verbalized by the patient): Female Spiritual care concerns: No Anes - Eval Final PreProcedure Day of Procedure 02/14/21 07:57 Patient weight: obese Heart: regular rate and rhythm Lungs: clear to auscultation Airway: Mallampati scale class II Neurological: alert and oriented Last oral intake: >/= 8 hours ASA classification: III Emergent: no Anesthetic plan: proceed Anesthesia type and monitoring: general GIVS and standard monitoring Informed Consent: The patient's anesthetic plan and its attendant risks and benefits were discussed with the patient/family/POA. Questions were solicited and answers provided to the satisfaction of the patient/family/POA.
--- NOTE | 2021-02-14 07:57 | PM.HPGS ---
History of Present Illness History of Present Illness Consent: Risks, benefits, and alternatives have been discussed and questions answered. Patient agrees to proceed with procedure. Chief complaint: colitis Narrative: Dimple Mares is a 70 year old female with family history of colon cancer, last colonoscopy 5 years ago. Had colitis several weeks ago. Review of Systems Constitutional: Constitutional: Denies headache(s) and Denies weakness Eyes: Eyes: Denies blurry vision ENT: Reports Normal hearing present, Denies headache(s) and Denies neck pain Cardiovascular: Cardiovascular: Denies chest pain and Denies dyspnea Respiratory: Respiratory: Denies dyspnea Gastrointestinal: Gastrointestinal: Reports no additional gastrointestinal complaints Genitourinary: Genitourinary: Denies dysuria Musculoskeletal: Musculoskeletal: Denies neck pain Integumentary/Breasts: Skin/Breast: Denies dry skin Neurologic: Reports Normal hearing present, Denies headache(s) and Denies weakness Psychiatric: Psychiatric: Denies anxiety Endocrine: Endocrine: Denies change in body appearance Hematologic/Lymphatic: Hematologic/Lymphatic: Denies easy bleeding Allergic/Immunologic: Allergic/Immunologic: Denies urticaria [facility] Past Medical History Medical History (Updated 01/09/21 @ 10:26 by Avinash Ivy MD) Anxiety Arthritis BMI 34.0-34.9,adult Cancer BCCA NOSE Chronic renal failure, stage 3 (moderate) Depression Diabetes mellitus Family history of colon cancer HTN (hypertension) Hypercholesterolemia Obesity Surgical History Surgical History History of cholecystectomy History of total hysterectomy Family History Family History Sibling Colon cancer Father Colon cancer Diabetes mellitus Hyperlipemia Mother Lung cancer Diverticulitis Diabetes mellitus Hyperlipemia Social History Social History Smoking status: Never smoker Alcohol intake: never Substance use: never Living arrangements: with family Gender identity (if verbalized by the patient): Female Spiritual care concerns: No Meds Home Medications and Allergies Home Medications Medication Instructions Recorded Confirmed Type duloxetine 60 mg PO DAILY 11/27/19 02/14/21 History atorvastatin 40 mg PO QAM 02/29/20 02/14/21 History allopurinol 100 mg PO DAILY 12/04/20 02/14/21 History calcitriol 0.25 mcg PO EVERY OTHER DAY 12/04/20 02/14/21 History ergocalciferol (vitamin D2) 1,250 mcg PO WEEKLY 12/04/20 02/14/21 History metformin 500 mg PO DAILY 12/04/20 02/14/21 History oxybutynin chloride 5 mg PO HS 12/04/20 02/14/21 History acetaminophen [Mapap 650 mg PO Q6H PRN #0 tablet 12/08/20 02/14/21 Rx (acetaminophen)] omeprazole 40 mg capsule,delayed 40 mg PO DAILY 01/09/21 02/14/21 History release lisinopril 10 mg PO DAILY 01/30/21 02/14/21 History Allergies Allergy/AdvReac Type Severity Reaction Status Date / Time caffeine Allergy Unknown TRIGGERS Verified 02/14/21 06:47 MIGRAINES rosuvastatin Allergy Unknown Muscle Verified 02/14/21 06:47 Spasms AND CONFUSION Vital Signs Vital Signs - 24 hr 02/14/21 06:48 Temperature 97.4 F L Pulse Rate 72 Respiratory Rate 18 Blood Pressure 117/93 H Pulse Oximetry 100 Exam Const: General: comfortable and no acute distress HENMT: General nose exam: Normal nares present Eyes: General: appearance normal, both eyes and all related structures Neck: Neck: no JVD Resp: Auscultation: clear to auscultation bilaterally Cardio: Rate: regular rate Rhythm: regular rhythm GI: Inspection: non-distended GI Palp: Yes Soft to palpation Skin: General skin exam: normal color Neuro: General: gait normal Speech: normal speech Extrem: General: normal to inspection Psych:
[2021-02-14 08:24] VITALS: BP 91/43; PULSE 57; RESP 21; O2SAT 100
[2021-02-14 08:34] VITALS: BP 98/56; PULSE 55; RESP 17; O2SAT 96
[2021-02-14 08:44] VITALS: BP 107/63; PULSE 54; RESP 20; O2SAT 100
== END 2021-02-14 08:56 | disposition home or self-care (01) ==
PROVIDERS: PCP Internal Medicine; Visit Provider Internal Medicine Gastroenterology
PROC: 0DJD8ZZ Inspection of Lower Intestinal Tract, Via Natural or Artificial Opening Endoscopic (ICD-10-PCS; CPT 45378; principal; 2021-02-14 08:00)
DX: Z12.11 Encounter for screening for malignant neoplasm of colon (principal); D12.0 Benign neoplasm of cecum; D12.2 Benign neoplasm of ascending colon; D12.4 Benign neoplasm of descending colon; K57.30 Diverticulosis of large intestine without perforation or abscess without bleeding; K64.8 Other hemorrhoids; Z80.0 Family history of malignant neoplasm of digestive organs; I12.9 Hypertensive chronic kidney disease with stage 1 through stage 4 chronic kidney disease, or unspecified chronic kidney disease; E11.22 Type 2 diabetes mellitus with diabetic chronic kidney disease; N18.30 Chronic kidney disease, stage 3 unspecified; E78.00 Pure hypercholesterolemia, unspecified; F41.8 Other specified anxiety disorders; Z79.84 Long term (current) use of oral hypoglycemic drugs; E66.9 Obesity, unspecified; Z68.34 Body mass index [BMI] 34.0-34.9, adult
CPT/HCPCS: 45385; 82948; 88305; J2704; J7120

== ENCOUNTER 2021-02-25 15:44 | Emergency (ER) | payer MEDICARE, SELFPAY ==
[2021-02-25] VITALS (11 sets, daily range): BP systolic 109–143; BP diastolic 48–73; PULSE 52–74; RESP 7–18; TEMP 36.4; O2SAT 97–100
--- NOTE | ~2021-02-25 | XR_ITS ---
XR chest 2V DATE: 02/25/2021 18:10 INDICATION: Dizziness when standing TECHNIQUE: AP and lateral views COMPARISON: 01/16/2019 PA and lateral view FINDINGS: No pulmonary infiltrate or consolidation, pleural effusion or pulmonary vascular congestion or pneumothorax. Heart size is within normal limits. No hilar or mediastinal enlargement. Bilateral rotator cuff atrophy, more severe on the right. Degenerative spurring of the thoracic spine. IMPRESSION: No active cardiopulmonary disease Reviewed, dictated and finalized at location [facility].
--- NOTE | ~2021-02-25 | CT_ITS ---
EXAMINATION: CT brain wo con DATE: 02/25/2021 19:04 INDICATION: Dizziness for 2 days. Headache. TECHNIQUE: Computed tomography (CT) of the head was performed without intravenous contrast. The mA wa s adjusted according to patient size. Iterative reconstruction technique was employed. Exam dose: 60 5.33 mGy-cm total exam DLP. COMPARISON: None FINDINGS: No intracranial mass lesion or hemorrhage or cerebrovascular accident is evident. No midlin e shift or mass effect. There is nonspecific patchy diminished attenuation of the cerebral white matter, which may be due to chronic small vessel ischemic changes. No subdural or epidural hematoma. Included paranasal sinuses and the mastoid air cells are normally developed and aerated. No fracture or bone destruction of the cranial vault. IMPRESSION: No acute intracranial finding Probable small vessel chronic ischemic changes of the cerebral white matter Reviewed, dictated and finalized at [facility]. Reviewed, dictated and finalized at location A.
--- NOTE | ~2021-02-25 | CT_ITS ---
EXAMINATION: CTA brain carotid EXAM DATE: 02/25/2021 20:41 INDICATION: Dizziness, headache, neck pain . TECHNIQUE: Spiral CTA of the carotid arteries was performed with intravenous injection 100 cc of Omn ipaque 350. Axial, coronal, sagittal reformatted images reviewed. Additional reformatted images crea berhane on dedicated 3-D workstation. NASCET comparable standard used to assess the degree of arterial s tenosis. Spiral CT angiogram cerebral arteries performed with the same intravenous injection of cont rast. Source images of the brain CTA transferred to dedicated workstation for 3-D rotational image cr eation. Coronal, sagittal maximum intensity pixel images also reviewed. The dose-length product (DL P) for this examination was 905.59 mGy-cm. The exposure was tailored according to patient size, and iterative reconstruction (ASIR) was used as additional dose reduction technique. Correlation is made to noncontrast head CT performed earlier same date. FINDINGS: There is no carotid bulb arterial sclerosis, 0% carotid stenosis bilaterally. The vertebral arteries are codominant. Mild bilateral carotid siphon arterial sclerosis without stenosis. Tortuosi ty to the extracranial internal carotid arteries. There is no carotid or vertebral basilar arterial d issection or fibromuscular dysplasia. There are no cerebral artery aneurysms. There is symmetric cere bral artery arborization. The sagittal, transverse and sigmoid sinuses enhance normally, no venous si nus thrombosis. Internal cerebral veins also enhance normally. Incidental Findings: Mild to moderate microangiopathy, mild cerebral atrophy. Moderate to severe cerv ical disc disease, but only mild to moderate arthropathy. Borderline heart size. IMPRESSION: 1. No acute carotid or intracranial findings. 2. Bilateral carotid 0% stenosis. 3. Senescent changes. Reviewed, dictated and finalized at location G.
--- NOTE | 2021-02-25 16:14 | ECG_ITS ---
Measurements Intervals [place] Rate: 56 P: 30 DC: 186 QRS: 18 QRSD: 97 T: 52 QT: 449 QTc: 435 Interpretive Statements SINUS BRADYCARDIA BORDERLINE ECG Electronically Signed On 02-25-2021 17:10:54 CDT by Pravin Weston D.O.
[2021-02-25 16:38] LABS: Basophils Percent Auto 0.5 % (0.2-1.2); Eosinophils Absolute Auto 0.1 K/mm3 (0-0.3); Eosinophils Percent Auto 2.1 % (0-4.4); Hematocrit 39.2 % (37.0-47.0); Hemoglobin 12.9 g/dL (12.0-15.0); Immature Granulocyte Absolute 0.02 K/mm3 (0.00-0.031); Immature Granulocyte Percent A 0.3 % (0-0.5); Lymphocytes Absolute Auto 1.14 K/mm3 (0.9-3.2); Lymphocytes Percent Auto 19.9 % (18.3-44.2); Mean Corpuscular HGB Conc 32.9 g/dl (32-36); Mean Corpuscular Hemoglobin 29.7 pg (26-34); Mean Corpuscular Volume 90.1 fl (80-100); Mean Platelet Volume 10.5 fl (7.4-10.4); Monocytes Absolute Auto 0.4 K/mm3 (0.1-0.6); Monocytes Percent Auto 6.5 % (2.6-8.5); Neutrophils Percent Auto 70.7 % (45.5-73.1); Platelet Count Result 254 k/mm3 (150-375); Red Blood Count 4.35 M/mm3 (4.2-5.4); Red Cell Distribution Width 13.2 % (11.5-14.5); White Blood Count 5.7 K/mm3 (4.5-10.0)
[2021-02-25 16:47] LABS: Anion Gap 9 mmol/L (8-16); Blood Urea Nitrogen 17 mg/dL (7-17); Carbon Dioxide 28 mmol/L (22-30); Chloride 106 mmol/L (98-107); Estimated CRCL calculation 58 ml/min; Estimated Glomerular Filt Rate > 60; Glucose 112 mg/dL (65-105); Potassium 4.4 mmol/L (3.4-5.0); Sodium 143 mmol/L (137-145)
--- NOTE | 2021-02-25 18:19 | ED.DIZZY ---
HPI - Dizziness General Chief Complaint: Dizziness Stated Complaint: dizzy Time Seen by Provider: 02/25/21 17:39 Source: patient Mode of arrival: wheelchair Limitations: no limitations History of Present Illness HPI Narrative: This is a 70-year-old female that presents to the emergency department for dizziness noted since yesterday. Reports starting in the afternoon she was feeling kind of lightheaded. After eating dinner and trying to do the dishes she felt very dizzy which she describes as room spinning. She had to sit down to help alleviate this. She went to bed and every time she had to get up she felt dizzy and unsteady on her feet. Associated with nausea and vomiting. Does report headache and neck pain. Neck pain has been ongoing for her and she is currently seeing a neurosurgeon for this. Denies fever, vision changes, numbness, or weakness. Related Data Home Medications Medication Instructions Recorded Confirmed duloxetine 60 mg PO DAILY 11/27/19 02/14/21 atorvastatin 40 mg PO QAM 02/29/20 02/14/21 allopurinol 100 mg PO DAILY 12/04/20 02/14/21 calcitriol 0.25 mcg PO EVERY OTHER DAY 12/04/20 02/14/21 ergocalciferol (vitamin D2) 1,250 mcg PO WEEKLY 12/04/20 02/14/21 metformin 500 mg PO DAILY 12/04/20 02/14/21 oxybutynin chloride 5 mg PO HS 12/04/20 02/14/21 omeprazole 40 mg capsule,delayed 40 mg PO DAILY 01/09/21 02/14/21 release lisinopril 10 mg PO DAILY 01/30/21 02/14/21 Allergies Allergy/AdvReac Type Severity Reaction Status Date / Time caffeine Allergy Unknown TRIGGERS Verified 02/25/21 17:29 MIGRAINES rosuvastatin Allergy Unknown Muscle Verified 02/25/21 17:29 Spasms AND CONFUSION Review of Systems Review of Systems: Narrative: CONSTITUTIONAL: Denies fever EYES: Denies visual changes CARDIOVASCULAR: Denies chest pain RESPIRATORY: Denies dyspnea. GASTROINTESTINAL: Reports nausea, vomiting MUSCULOSKELETAL: Reports joint pain, and myalgia. NEUROLOGIC: Reports headache. Denies numbness, or weakness. All systems reviewed & are unremarkable except as noted in HPI and below PMFSH Past Medical History Medical History (Updated 02/25/21 @ 22:05 by Justina Eddy PA-C) Anxiety Arthritis BMI 34.0-34.9,adult Cancer BCCA NOSE Chronic renal failure, stage 3 (moderate) Depression Diabetes mellitus Family history of colon cancer HTN (hypertension) Hypercholesterolemia Obesity Surgical History Surgical History History of cholecystectomy History of total hysterectomy Family History Family History Sibling Colon cancer Father Colon cancer Diabetes mellitus Hyperlipemia Mother Lung cancer Diverticulitis Diabetes mellitus Hyperlipemia Social History Social History Smoking status: Never smoker Alcohol intake: never Substance use: never Gender identity (if verbalized by the patient): Female Spiritual care concerns: No Exam Narrative: Exam Narrative: GENERAL: Well-appearing, well-nourished, and in no acute distress. HEAD: Normocephalic, atraumatic. EYES: PERRLA and EOMI. ENT: Nares clear, no rhinorrhea or epistaxis. Mucous membranes moist. Oropharynx without tonsillar hypertrophy exudate or other lesions. Bilateral TMs pearly riggs non-bulging NECK: Supple. No adenopathy or masses. No carotid bruits or JVD CHEST: Clear to auscultation. No respiratory distress. No wheezes rales or rhonchi HEART: Regular rate and rhythm. No murmur heard. Normal peripheral pulses. EXTREMITIES: Normal range of motion. No edema. Strength equal in bilateral upper and lower extremities (5/5) SKIN: Warm, dry, no rash. NEURO: No focal deficits. Alert and oriented x3. Cranial nerves II through XII grossly intact. Normal [id number] PSYCH: Normal mood and affect Course Vital Signs Vital signs: Vital Signs
[2021-02-25] MEDS: SODIUM CHLORIDE 0.9% IV 500 ML 999 ML IV CONT (18:33)
[2021-02-25] MEDS: MECLIZINE HCL 25 MG TABLET PO (18:35)
[2021-02-25] MEDS: ONDANSETRON INJ 4 MG/2 ML VIAL IV PUSH (18:35)
[2021-02-25 20:16] LABS: Add Urine Microscopic? YES; Appearance Urine Clear (Clear); Bacteria Urine Trace /hpf; Bilirubin Urine Negative (Negative); Blood Urine Negative (Negative); Color Urine Yellow (Yellow); Glucose Urine UA Negative (Negative); Ketones Urine Negative (Negative); Leukocyte Esterase Ur 1+ LEU/UL (Negative); Mucus Urine Rare /lpf; Nitrate Urine Negative (Negative); Protein Urine Negative (Negative); RBC Urine 0-2 /hpf (0-2); Squamous Epithelial Cell Urine Few /hpf (Few); Urobilinogen Urine Negative mg/dL (<2.0); WBC Urine 0-3 /hpf
--- NOTE | 2021-02-25 20:30 | PC.NURSE ---
Pt to CT scan via stretcher.
== END 2021-02-25 22:21 | disposition home or self-care (01) ==
PROVIDERS: Physician Assistant; Emergency Provider Emergency Medicine; PCP Internal Medicine
DX: R42 Dizziness and giddiness (principal); E11.22 Type 2 diabetes mellitus with diabetic chronic kidney disease; I12.9 Hypertensive chronic kidney disease with stage 1 through stage 4 chronic kidney disease, or unspecified chronic kidney disease; N18.30 Chronic kidney disease, stage 3 unspecified; Z79.84 Long term (current) use of oral hypoglycemic drugs; E78.00 Pure hypercholesterolemia, unspecified; M19.90 Unspecified osteoarthritis, unspecified site; E66.9 Obesity, unspecified; Z68.34 Body mass index [BMI] 34.0-34.9, adult; Z85.828 Personal history of other malignant neoplasm of skin; F41.9 Anxiety disorder, unspecified; F32.9 Major depressive disorder, single episode, unspecified
CPT/HCPCS: 36415; 70450; 70496; 70498; 71046; 80048; 81001; 85025; 93005; 96361; 96365; 96375; 99284; A9270; J0131; J2405; J7040; Q9967

== ENCOUNTER 2021-07-16 07:38 | Outpatient (CLI) | payer MEDICARE, SELFPAY | END 2021-07-16 07:39 | disposition home or self-care (01) | LOC: ANHAUDIO 07:40 | PROVIDERS: PCP Internal Medicine; Visit Provider Nurse Practitioner Family | DX: R42 Dizziness and giddiness (principal) | CPT/HCPCS: 92537; 92540; 92546; 92557; 92567 ==

== ENCOUNTER → 2021-10-08 13:27 | Outpatient (CLI) | payer MEDICARE, SELFPAY ==
--- NOTE | ~2021-10-08 | MM_ITS ---
EXAMINATION: MM screening [facility] BI w li HISTORY: Screening mammogram TECHNIQUE: Craniocaudal and mediolateral oblique 3-D tomosynthesis images were obtained and synthetic 2-D images were generated. CAD analysis was submitted and interpreted. COMPARISON: 08/15/2020, 06/29/2019, 06/22/2018 BREAST PARENCHYMAL COMPOSITION: There are scattered areas of fibroglandular density. FINDINGS: There is no evidence of suspicious mass, calcification, or architectural distortion to sugg est malignancy in either breast. There has been no suspicious interval change. IMPRESSION: 1. No mammographic evidence of malignancy. 2. Recommend routine screening mammography in one year. BI-RADS Category 1: Negative Reviewed, dictated and finalized at location A. E [employer]ANT
== END ==
PROVIDERS: PCP Internal Medicine; Visit Provider Obstetrics & Gynecology
DX: Z12.31 Encounter for screening mammogram for malignant neoplasm of breast (principal)
CPT/HCPCS: 77063; 77067

== ENCOUNTER → 2022-06-03 10:59 | Outpatient (CLI) | payer MEDICARE, SELFPAY ==
--- NOTE | ~2022-06-03 | DEXA_ITS ---
Bone Density Report Name: PRAVIN RODRIGUEZ Age: 71 Sex: Female Ethnicity: White Date of : 1950 Indication: postmenopausal; screening for osteoporosis; height loss; history of glucocorticoids; hysterectomy; Referring Provider: ReneeFrancine Study: Bone densitometry was performed. Exam Date: June 03, 2022 Accession number: [id number] Bone Density: Region BMD T-score Z-score Classification AP Spine (L1, L2) 1.493 4.7 6.8 Normal Femoral Neck (Left) 0.839 -0.1 1.8 Normal Total Hip (Left) 1.001 0.5 2.1 Normal Femoral Neck (Right) 0.954 0.9 2.9 Normal Total Hip (Right) 1.001 0.5 2.1 Normal Total Hip Mean 1.001 0.5 2.1 Normal World Health Organization criteria for BMD impression classify patients as: Normal (T-score at or above -1.0), Osteopenia (T-score between -1.0 and -2.5), or Osteoporosis (T-score at or below -2.5). 10-year Fracture Risk: FRAX not reported because: All T-scores for Spine Total, Hip Total, Femoral Neck at or above -1.0 Previous Exams: Region Exam Age BMD T-score BMD Change BMD Change Date g/cm2 vs Baseline vs Previous AP Spine(L1, L2) 06/03/2022 71 1.493 4.7 0.284* 0.284* 02/05/2016 65 1.209 2.1 Total Hip(Left) 06/03/2022 71 1.001 0.5 -0.050* -0.050* 02/05/2016 65 1.050 0.9 Total Hip(Right) 06/03/2022 71 1.001 0.5 -0.018 -0.018 02/05/2016 65 1.019 0.6 *Denotes significance at 95% confidence level, LSC for AP Spine = 0.022 g/cm2, LSC for Total Hip = 0.027 g/cm2 Clinical Information Provided by Patient: Has taken Glucocorticoids Has used the following medications: Vitamin D, Calcium Has the following medical conditions: Hysterectomy, diverticulitis Patient maximum height was 65 Menopause Age: 40 No regular weight bearing exercise Onset of menses at age 14 Number of children 2 Impression: The patient has normal bone mass. The patient has risk factors, including: history of glucocorticoid therapy. The BMD for the Total Hip(Left) decreased, changing by -0.050 since the last DXA exam. Discussion: BONE DENSITY IS ABOVE THE MINIMUM DESIRABLE LEVEL AT ALL SKELETAL SITES TESTED. This patient?s bone mineral density is above the minimum desirable level (T-score -1.0 or better) at all sites measured. The patient should follow a healthful lifestyle (good nutrition with adequate calcium and vitamin D, and appropriate weight-bearing exercise)
== END ==
PROVIDERS: PCP Internal Medicine; Visit Provider Internal Medicine
DX: M81.0 Age-related osteoporosis without current pathological fracture (principal); Z13.820 Encounter for screening for osteoporosis
CPT/HCPCS: 77080

== ENCOUNTER → 2022-10-20 11:53 | Outpatient (CLI) | payer MEDICARE, SELFPAY ==
--- NOTE | ~2022-10-20 | MM_ITS ---
EXAMINATION: MM screening [facility] w li HISTORY: Screening mammogram TECHNIQUE: Craniocaudal and mediolateral oblique 3-D tomosynthesis images were obtained and synthetic 2-D images were generated. CAD analysis was submitted and interpreted. COMPARISON: 10/08/2021, 08/15/2020, bilateral screening mammogram examinations BREAST PARENCHYMAL COMPOSITION: There are scattered areas of fibroglandular density. FINDINGS: Stable circumscribed bilateral intramammary lymph nodes. There is no evidence of suspicious mass, calcification, or architectural distortion to suggest malignancy in either breast. There has b een no suspicious interval change. IMPRESSION: 1. No mammographic evidence of malignancy. 2. Recommend routine screening mammography in one year. BI-RADS Category 1: Negative Reviewed, dictated and finalized at location A. [employer]
== END ==
PROVIDERS: PCP Internal Medicine; Visit Provider Internal Medicine
DX: Z12.31 Encounter for screening mammogram for malignant neoplasm of breast (principal)
CPT/HCPCS: 77063; 77067

== ENCOUNTER 2024-02-28 10:34 | Outpatient (CLI) | payer MEDICARE, SELFPAY ==
--- NOTE | ~2024-02-28 | MM_ITS ---
EXAMINATION: MM screening [facility] w li HISTORY: Screening TECHNIQUE: Craniocaudal and mediolateral oblique 3-D tomosynthesis images were obtained and synthetic 2-D images were generated. CAD analysis was submitted and interpreted. COMPARISON: Comparison to multiple prior studies sequentially, with oldest reviewed study dated 05/10. BREAST PARENCHYMAL COMPOSITION: Not dense: There are scattered areas of fibroglandular density. FINDINGS: There is no evidence of suspicious mass, calcification, or architectural distortion to sugg est malignancy in either breast. There has been no suspicious interval change. IMPRESSION: 1. No mammographic evidence of malignancy. 2. Recommend routine screening mammography in one year. BI-RADS Category 1: Negative Reviewed, dictated and finalized at location B.
== END 2024-02-28 10:35 ==
PROVIDERS: PCP Internal Medicine; Visit Provider Internal Medicine
DX: Z12.31 Encounter for screening mammogram for malignant neoplasm of breast (principal)
CPT/HCPCS: 77063; 77067

== ENCOUNTER 2025-05-01 12:11 | Outpatient (CLI) | payer MEDICARE, SELFPAY ==
--- NOTE | ~2025-05-01 | MM_ITS ---
EXAMINATION: MM screening [facility] w li HISTORY: Screening mammogram TECHNIQUE: Craniocaudal and mediolateral oblique 3-D tomosynthesis images were obtained and synthetic 2-D images were generated. CAD analysis was submitted and interpreted. COMPARISON: 02/28/2024, 10/20/2022, 10/08/2021 BREAST PARENCHYMAL COMPOSITION:Not Dense. The breasts are almost entirely fatty FINDINGS: No suspicious mass, calcification, or architectural distortion are identified in either breast to suggest malignancy. There has been no suspicious interval change. IMPRESSION: No mammographic evidence of malignancy. Recommend routine screening mammography in one year. BI-RADS Category 1: Negative Reviewed, dictated and finalized at location .
== END 2025-05-01 12:12 | disposition home or self-care (01) ==
PROVIDERS: PCP Internal Medicine; Visit Provider Internal Medicine
DX: Z12.31 Encounter for screening mammogram for malignant neoplasm of breast (principal)
CPT/HCPCS: 77063; 77067